=== PATIENT | male | born 2000 | race Caucasian/White ===

== ENCOUNTER → 2024-03-21 16:55 | Outpatient (REF) | payer BC, SELFPAY | LOC: RCS 16:55 | PROVIDERS: ATTENDING PHYSICIAN Internal Medicine Interventional Cardiology; FAMILY PHYSICIAN Physician Assistant Medical | DX: I49.9 Cardiac arrhythmia, unspecified (principal); R00.2 Palpitations | CPT/HCPCS: 93306 ==